=== PATIENT | female | born 1955 | race Caucasian/White ===

== ENCOUNTER 2025-01-03 13:49 | Emergency (ER) | payer MEDICARE ==
[~2025-01-03] VITALS: Ht 172.7 cm; Wt 63.6 kg
[2025-01-03 13:56] VITALS: BP 134/57; PULSE 67; RESP 18; TEMP 97.8; O2SAT 98
--- NOTE | 2025-01-03 14:21 | Physician Documentation ---
History of Present Illness ~ Chief Complaint: Head Injury Stated Complaint: HEAD STRIKE Time Seen by MD: 14:11 OK to notify your PCP?: Yes HPI Patient is seen today with complaints of having hit her forehead on the door way of her chicken coop yesterday. Patient states he stumbled backwards and fell onto her buttocks. Patient states he has been feeling little nauseous in his c oncerned she might have a concussion. She denies any loss of consciousness and denies any blood thinner use. She denies any chest pain or shortness of breath or abdominal pain or nausea, vomiting, diarrhea. She has no other concern or complaint at this time. Medication Reconciliation Allergies: Coded Allergies: codeine (Unverified Allergy, Unknown, NAUSEA, VOMITING, 01/03/25) Review of Systems Constitutional: Denies: chills, fever, weakness Eyes: Denies: pain, blurred vision ENT: Denies: ear pain, nose pain, throat pain, mouth pain Respiratory: Denies: cough, shortness of breath Cardiovascular: Denies: chest pain, palpitations Gastrointestinal: Denies: abdominal pain, nausea, vomiting Genitourinary: Denies: burning, dysuria Female Genitalia: Denies: vaginal discharge, pelvic pain Neurological: Denies: headache, dizziness Musculoskeletal: Denies: pain, swelling Integumentary: Denies: rash, lesions Allergic/Immunologic: Denies: hives, itching Hematologic/Lymphatic: Denies: no symptoms reported Psychiatric: Denies: depression, anxiety Physical Exam Vital Signs: Temperature: 97.8, Heart Rate: 67, Respiratory Rate: 18, BP: 134/57, Pulse Oximetry: 98, Weight: 63.600 Oxygen Flow Rate: 0 Physical Exam General: Awake and Alert, no acute distress. HEENT: PERRLA, EOM intact bilaterally, On examination of the patient's forehead I do not appreciate any significant injury or ecchymosis or swelling or laceration. Patient signals to a very small dent in the skin of the forehead that does not appear acute to me at this time. Conjunctiva pink, Sclera clear, Mucus Membranes moist. Neck: Supple without masses and tenderness. Resp: Unlabored. Lungs clear to auscultation bilaterally. Heart: Regular Rate and rhythm, normal S1 and S2 without murmur, rub or gallop. Abdomen: Soft and non tender no organomegaly Extremities: No cyanosis,clubbing or edema. Skin: Warm and Dry. Progress Results/Orders Results/Orders Vital Signs 01/03/25 13:56 Temp 97.8 Pulse 67 Resp 18 B/P (MAP) 134/57 Pulse Ox 98 O2 Flow Rate 0 Medical Decision Making Additional information obtaine: N/A Findings Patient is seen today with complaints of having hit her forehead on the door way of her chicken coop yesterday. Patient states he stumbled backwards and fell onto her buttocks. Patient states he has been feeling little nauseous in his concerned she might have a concussion. She denies any loss of consciousness and denies any blood thinner use. She denies any chest pain or shortness of breath or abdominal pain or nausea, vomiting, diarrhea. She has no other concern or complaint at this time. I did discuss with the patient the possibility of head CT however I do not feel it to be medically necessary at this time given patient's symptoms and history. Physical exam findings. Patient will continue to monitor for possible concussion symptoms and will follow up with primary care in 1-3 days if no better as needed sooner. Return to ED with any worsening, concerning or lopez ing symptoms. Differential Dx:Considerations: Include: Closed head injury, Cervical spine injury, Skull facture, Contusion, Laceration Additional Comment concussion, TBI Departure Disposition: HOME / SELF CARE / HOMELESS Impression: Primary Impression: Concussion Qualified Codes: S06.0X0A - Concussion without loss of consciousness, initial encounter Condition: Stable Discharge Instructions: Post Concussion Syndrome,Adult Referrals: NO PRIMARY CARE PROVIDER (PCP) Signature Scribe Signature: No scribe Attestation: No scribe ARACELIS BYRD PAC Jan 03, 2025 14:21
== END 2025-01-03 14:29 | disposition home or self-care (01) ==
LOC: ER 13:50
DX: S06.0X0A Concussion without loss of consciousness, initial encounter (principal); Z88.5 Allergy status to narcotic agent; W01.0XXA Fall on same level from slipping, tripping and stumbling without subsequent striking against object, initial encounter; Y93.89 Activity, other specified; Y92.89 Other specified places as the place of occurrence of the external cause; Y99.8 Other external cause status
CPT/HCPCS: 99282